=== PATIENT | female | born 1940 | race Caucasian/White ===

== ENCOUNTER 2017-05-03 06:49 | Emergency (ER) | payer MEDICARE ==
[2017-05-03] MEDS ORDERED: Lidocaine 1% w/Epinephrine 1:100K 30 ML VIAL ONE (07:06)
[2017-05-03] MEDS ORDERED: Adacel (T-DAP) 0.5 ML VIAL ONE (07:32)
--- NOTE | 2017-05-03 07:59 | CT ---
HEAD CT: Date: 05/03/17 COMPARISON: None. HISTORY: Fall, trauma, pain. TECHNIQUE: Serial axial CT imaging at 5 mm intervals from vertex through skull base without contrast. FINDINGS: There is a focal area of posterior parietal scalp swelling with punctate internal foci of gas, eviden ce of posterior scalp laceration. The visualized paranasal sinuses and mastoid air cells are grossly unremarkable aside from mucosal thickening within the left sphenoid sinus. No displaced calvarial fra cture, intracranial hemorrhage, midline shift, or mass effect. IMPRESSION: Posterior scalp swelling/laceration. No associated intracranial hemorrhage or displaced calvarial fra cture. POS: [facility]
== END 2017-05-03 08:02 | disposition home or self-care (01) ==
LOC: SCSER 06:49
DX: S01.01XA Laceration without foreign body of scalp, initial encounter (principal); W18.09XA Striking against other object with subsequent fall, initial encounter
CPT/HCPCS: 12001; 70450; 90471; 90715; J2001

== ENCOUNTER 2017-05-09 11:26 | Emergency (ER) | payer MEDICARE | END 2017-05-09 12:10 | disposition home or self-care (01) | LOC: SCSER 11:26 | DX: S01.01XD Laceration without foreign body of scalp, subsequent encounter (principal); W18.30XD Fall on same level, unspecified, subsequent encounter; Z79.899 Other long term (current) drug therapy ==

== ENCOUNTER 2018-06-06 08:01 | Outpatient (CLI) | payer MEDICARE ==
--- NOTE | 2018-06-06 09:17 | MRI ---
Exam: BRAIN MRI WITH AND WITHOUT CONTRAST: HISTORY: Multiple sclerosis. COMPARISON: None FINDINGS: No hemorrhage on the axial gradient echo sequence. Calvarium has a normal T1 marrow signal intensity. Midline brain parenchymal structures are unremarka ble. There are stable T2 and FLAIR white matter hyperintensities. No new lesions are appreciated. The dist ribution does raise the possibility of multiple sclerosis, as suggested by the previous examination as well as the patient's history. There is adequate aeration of the sinuses and mastoid air cells. Central arterial flow voids are maintained. Absent restricted diffusion. No pathologic enhancement of the brain parenchyma. IMPRESSION: 1. Absent restricted diffusion. No evidence of abnormal brain parenchymal enhancement. No MR evidence of an active demyelinating plaque. 2. Essentially stable distribution of T2 and FLAIR white matter hyperintensities compatible with the patient's history of multiple sclerosis. Transcribed Date/Time: 06/06/2018 9:25 AM
== END 2018-06-06 08:02 | disposition home or self-care (01) ==
LOC: SCSMRI 08:01
PROVIDERS: ATTEND Psychiatry & Neurology Neurology
DX: G35 Multiple sclerosis (principal)
CPT/HCPCS: 70553; 82565

== ENCOUNTER 2021-01-19 08:27 | Outpatient (CLI) | payer MEDICARE | END 2021-01-19 08:28 | disposition home or self-care (01) | LOC: BICMRI 08:27 | PROVIDERS: ATTEND Specialist | DX: C50.911 Malignant neoplasm of unspecified site of right female breast (principal) | CPT/HCPCS: 82565; C8908 ==

== ENCOUNTER 2021-02-07 09:48 | Outpatient (CLI) | payer MEDICARE ==
[2021-02-07] MEDS ORDERED: Iopamidol 370 76% 100 ML VIAL ONE (15:19)
== END 2021-02-07 09:49 | disposition home or self-care (01) ==
LOC: CT 09:48
PROVIDERS: ATTEND Internal Medicine Hematology & Oncology
DX: C50.411 Malignant neoplasm of upper-outer quadrant of right female breast (principal); C79.51 Secondary malignant neoplasm of bone; C78.7 Secondary malignant neoplasm of liver and intrahepatic bile duct
CPT/HCPCS: 71260; 74177; 78306; A9503; Q9967

== ENCOUNTER 2021-02-16 13:44 | Outpatient (CLI) | payer MEDICARE ==
[2021-02-17 14:36] LABS: SARS-CoV-2 PCR by NAA Not Detected (NotDetected)
== END 2021-02-16 13:45 | disposition home or self-care (01) ==
LOC: LABBT 13:44
PROVIDERS: ATTEND Internal Medicine Hematology & Oncology
DX: Z01.812 Encounter for preprocedural laboratory examination (principal); C79.51 Secondary malignant neoplasm of bone; C50.411 Malignant neoplasm of upper-outer quadrant of right female breast; Z20.822 Contact with and (suspected) exposure to COVID-19
CPT/HCPCS: U0003; U0005

== ENCOUNTER 2021-02-21 08:45 | Day surgery (SDC) | payer MEDICARE ==
[2021-02-18 06:27] VITALS: BMI 24.2
[2021-02-21 09:16] LABS: INR-International Normal Ratio 0.9; PTT 26.5 sec (22.9-36.1); Prothrombin Time 12.2 sec (12.0-14.7)
[2021-02-21 11:38] VITALS: TEMP 98
[2021-02-21] MEDS ORDERED: Fentanyl 100 MCG/2 ML VIAL ONE (12:16)
[2021-02-21] MEDS ORDERED: Midazolam HCl 2 mg/2 ml Vial ONE (12:16)
== END 2021-02-21 14:15 | disposition home or self-care (01) ==
LOC: CT 08:45
PROVIDERS: ATTEND Internal Medicine Hematology & Oncology
PROC: 0FB13ZX Excision of Right Lobe Liver, Percutaneous Approach, Diagnostic (ICD-10-PCS; principal; 2021-02-21)
DX: C50.411 Malignant neoplasm of upper-outer quadrant of right female breast (principal); C78.7 Secondary malignant neoplasm of liver and intrahepatic bile duct; D63.0 Anemia in neoplastic disease; Z17.0 Estrogen receptor positive status [ER+]; Z79.83 Long term (current) use of bisphosphonates; Z79.899 Other long term (current) drug therapy
CPT/HCPCS: 47000; 77012; 85610; 85730; 88307; 88333; 88334; 88341; 88342; J2250; J3010

== ENCOUNTER 2021-05-16 07:59 | Outpatient (CLI) | payer MEDICARE | END 2021-05-16 08:00 | disposition home or self-care (01) | LOC: CT 07:59 | PROVIDERS: ATTEND Internal Medicine Hematology & Oncology | DX: C50.411 Malignant neoplasm of upper-outer quadrant of right female breast (principal); C79.51 Secondary malignant neoplasm of bone; R91.1 Solitary pulmonary nodule | CPT/HCPCS: 71260; 74177; 78306; 82565; A9503 ==

== ENCOUNTER 2021-08-12 07:36 | Outpatient (CLI) | payer MEDICARE ==
[2021-08-12] MEDS ORDERED: Iopamidol 370 76% 100 ML VIAL ONE (08:00)
== END 2021-08-12 07:37 | disposition home or self-care (01) ==
LOC: NM 07:36
PROVIDERS: ATTEND Internal Medicine Hematology & Oncology
DX: C79.51 Secondary malignant neoplasm of bone (principal); C50.411 Malignant neoplasm of upper-outer quadrant of right female breast; R91.8 Other nonspecific abnormal finding of lung field; I71.4 Abdominal aortic aneurysm, without rupture
CPT/HCPCS: 71260; 74177; 78306; 82565; Q9967

== ENCOUNTER 2022-02-17 08:38 | Outpatient (CLI) | payer MEDICARE ==
[2022-02-17] MEDS ORDERED: Iopamidol 370 76% 100 ML VIAL ONE (10:15)
== END 2022-02-17 08:39 | disposition home or self-care (01) ==
LOC: CT 08:38
PROVIDERS: ATTEND Internal Medicine Hematology & Oncology
DX: C79.51 Secondary malignant neoplasm of bone (principal); C50.411 Malignant neoplasm of upper-outer quadrant of right female breast
CPT/HCPCS: 71260; 74177; 78306; 82565; A9503

== ENCOUNTER 2022-04-08 21:16 | Observation (INO) | payer MEDICARE ==
[2022-04-08] MEDS ORDERED: HYDROcodone/Acetaminophen 5/325 mg Tablet ONE (21:56)
[2022-04-08] MEDS ORDERED: Ketorolac Tromethamine 30 MG/ML VIAL ONE (21:56)
[2022-04-08 22:50] LABS: #Basophils 0.1 thou/uL (0.0-0.2); #Eosinphils 0.2 thou/uL (0.0-0.7); #Lymphocytes 2.3 thou/uL (1.20-3.40); #Monocytes 0.8 thou/uL (0.11-0.59); #Neutrophils 3.5 thou/uL (1.40-6.50); %Basophils 1.2 % (0.0-1.0); %Eosinophils 3.3 % (0.0-10.0); %Monocytes 11.9 % (0.0-10.0); %Neutrophils 50.6 % (42.0-75.0); Hemoglobin 10.2 g/dL (12.0-16.0); Mean Corpuscular HGB CONC 33.7 g/dL (32.0-36.0); Mean Corpuscular Hemoglobin 37.2 pg (27.0-31.0); Mean Platelet Volume 6.7 fL (7.4-10.4); Platelet Count 208 10x3/uL (130-400); RBC Distribution Width 12.1 % (11.5-14.5); Red Blood Cell (RBC) Count 2.73 mill/uL (4.20-5.40)
[2022-04-08 22:58] LABS: ALT (SGPT) 7 U/L (8-55); AST (SGOT) 19 U/L (5-34); Albumin 3.3 g/dL (3.4-4.8); Alkaline Phosphatase 44 U/L (40-110); Anion Gap 14 mmol/L (10-20); BUN (Urea Nitrogen) 27 mg/dL (9.8-20.1); Bilirubin, Total 0.3 mg/dL (0.2-1.2); Calc. Creatinine Clearance 0 mL/min (70-130); Calcium 9.8 mg/dL (7.8-10.44); Carbon Dioxide 24 mmol/L (23-31); Chloride 107 mmol/L (98-107); Estimated GFR 45; Globulin 2.8 g/dL (2.4-3.5); Glucose 111 mg/dL (83-110); Potassium 3.7 mmol/L (3.5-5.1); Protein, Total 6.1 g/dL (5.8-8.1); Sodium 141 mmol/L (136-145)
[2022-04-09 01:41] VITALS: BMI 21.4
[2022-04-09 01:42] LABS: SARS-CoV-2 NAA Rapid Test Not Detected (NotDetected)
[2022-04-09] MEDS ORDERED: Bisacodyl 10 MG SUPP PR PRN (03:04)
[2022-04-09 06:50] LABS: #Basophils 0.1 thou/uL (0.0-0.2); #Eosinphils 0.2 thou/uL (0.0-0.7); #Lymphocytes 2.2 thou/uL (1.20-3.40); #Monocytes 0.8 thou/uL (0.11-0.59); #Neutrophils 3.5 thou/uL (1.40-6.50); %Basophils 1.6 % (0.0-1.0); %Monocytes 11.5 % (0.0-10.0); Hemoglobin 9.6 g/dL (12.0-16.0); Mean Corpuscular HGB CONC 33.5 g/dL (32.0-36.0); Mean Corpuscular Hemoglobin 37.1 pg (27.0-31.0); Mean Platelet Volume 6.6 fL (7.4-10.4); Platelet Count 183 10x3/uL (130-400); RBC Distribution Width 11.9 % (11.5-14.5); Red Blood Cell (RBC) Count 2.57 mill/uL (4.20-5.40); White Blood Cell (WBC) Count 6.7 10x3/uL (4.8-10.8)
[2022-04-09 07:07] LABS: Anion Gap 11 mmol/L (10-20); BUN (Urea Nitrogen) 25 mg/dL (9.8-20.1); Calc. Creatinine Clearance 33 mL/min (70-130); Carbon Dioxide 20 mmol/L (23-31); Chloride 111 mmol/L (98-107); Estimated GFR 48; Glucose 91 mg/dL (83-110); Potassium 3.9 mmol/L (3.5-5.1); Sodium 138 mmol/L (136-145)
[2022-04-09] MEDS: Famotidine 20 MG TAB PO SCH ×2 (09:35→22:26)
[2022-04-09] MEDS: HYDROcodone/Acetaminophen 5/325 mg Tablet PO PRN ×2 (11:42→22:26)
[2022-04-09] MEDS ORDERED: ABEMACICLIB 150 MG PO SCH (21:00)
[2022-04-10] MEDS: Letrozole 2.5 MG TAB PO SCH ×2 (10:01→10:14)
[2022-04-10] MEDS: Ascorbic Acid 500 mg Chewable Tablet PO SCH (10:01)
[2022-04-10] MEDS: Calcium Carbonate 500 MG TAB PO SCH (10:01)
[2022-04-10] MEDS: Multivitamin w/Zinc Stress 1 TAB PO SCH (10:01)
[2022-04-10] MEDS: HYDROcodone/Acetaminophen 5/325 mg Tablet PO PRN ×2 (10:10→22:04)
[2022-04-10] MEDS ORDERED: Acetaminophen 325 MG Suppository PR PRN (17:12)
[2022-04-10] MEDS ORDERED: traMADol HCl 50 MG TAB PO PRN (17:14)
[2022-04-10] MEDS ORDERED: Acetaminophen 325 MG TAB PO PRN (17:17)
[2022-04-10] MEDS: Acetaminophen 325 MG TAB PO SCH (22:02)
[2022-04-10] MEDS: Senokot S 8.6-50 MG TAB PO SCH (22:05)
[2022-04-10] MEDS: Famotidine 20 MG TAB PO SCH (22:05)
[2022-04-11] MEDS: Ascorbic Acid 500 mg Chewable Tablet PO SCH (09:39)
[2022-04-11] MEDS: Multivitamin w/Zinc Stress 1 TAB PO SCH (09:40)
[2022-04-11] MEDS: Calcium Carbonate 500 MG TAB PO SCH (09:40)
[2022-04-11] MEDS: Multivit, Therapeutic 1 TAB PO SCH (09:40)
[2022-04-11] MEDS: Acetaminophen 325 MG TAB PO SCH ×3 (09:40→22:09)
[2022-04-11] MEDS: Cyanocobalamin (Vitamin B-12) 1,000 MCG TAB PO SCH (09:40)
[2022-04-11] MEDS: Senokot S 8.6-50 MG TAB PO SCH ×2 (09:40→22:08)
[2022-04-11] MEDS: Letrozole 2.5 MG TAB PO SCH (09:41)
[2022-04-11] MEDS ORDERED: Polyethylene Glycol 3350 17 GM Packet PO PRN (15:53)
[2022-04-11] MEDS: Famotidine 20 MG TAB PO SCH (22:09)
[2022-04-12] MEDS: Calcium Carbonate 500 MG TAB PO SCH (10:26)
[2022-04-12] MEDS: Ascorbic Acid 500 mg Chewable Tablet PO SCH (10:26)
[2022-04-12] MEDS: Letrozole 2.5 MG TAB PO SCH (10:26)
[2022-04-12] MEDS: Acetaminophen 325 MG TAB PO SCH ×3 (10:27→20:23)
[2022-04-12] MEDS: Cyanocobalamin (Vitamin B-12) 1,000 MCG TAB PO SCH (10:27)
[2022-04-12] MEDS: Multivitamin w/Zinc Stress 1 TAB PO SCH (10:27)
[2022-04-12] MEDS: Multivit, Therapeutic 1 TAB PO SCH (10:27)
[2022-04-12] MEDS: Senokot S 8.6-50 MG TAB PO SCH ×2 (10:28→20:27)
[2022-04-12] MEDS: Famotidine 20 MG TAB PO SCH (20:23)
[2022-04-13] MEDS: Letrozole 2.5 MG TAB PO SCH (08:25)
[2022-04-13] MEDS: Acetaminophen 325 MG TAB PO SCH (08:26)
[2022-04-13] MEDS: Ascorbic Acid 500 mg Chewable Tablet PO SCH (08:27)
[2022-04-13] MEDS: Multivit, Therapeutic 1 TAB PO SCH (08:27)
[2022-04-13] MEDS: Calcium Carbonate 500 MG TAB PO SCH (08:27)
[2022-04-13] MEDS: Multivitamin w/Zinc Stress 1 TAB PO SCH (08:28)
[2022-04-13] MEDS: Cyanocobalamin (Vitamin B-12) 1,000 MCG TAB PO SCH (08:28)
[2022-04-13] MEDS: Senokot S 8.6-50 MG TAB PO SCH (08:29)
[2022-04-13 15:47] VITALS: BP 152/76; TEMP 98
== END 2022-04-13 16:14 | disposition home or self-care (01) ==
LOC: ERS 21:16 → ERHOLD 04-09 00:35 → SURG B 04-09 04:14
PROVIDERS: ADMIT Internal Medicine; ATTEND Internal Medicine
DX: G89.3 Neoplasm related pain (acute) (chronic) (principal); M25.551 Pain in right hip; C50.919 Malignant neoplasm of unspecified site of unspecified female breast; C79.51 Secondary malignant neoplasm of bone; N18.30 Chronic kidney disease, stage 3 unspecified; D63.1 Anemia in chronic kidney disease; M81.0 Age-related osteoporosis without current pathological fracture; G35 Multiple sclerosis; Z79.83 Long term (current) use of bisphosphonates; Z79.899 Other long term (current) drug therapy; Z20.822 Contact with and (suspected) exposure to COVID-19
CPT/HCPCS: 72192; 80048; 80053; 85025 ×2; 96372; 97116 ×2; 97530; 97535; 99284; U0002; 36415; G0378; J1650; J1885

== ENCOUNTER 2022-05-08 09:04 | Outpatient (CLI) | payer MEDICARE | END 2022-05-08 09:05 | disposition home or self-care (01) | LOC: CT 09:04 | PROVIDERS: ATTEND Internal Medicine Hematology & Oncology | DX: C50.411 Malignant neoplasm of upper-outer quadrant of right female breast (principal); C79.51 Secondary malignant neoplasm of bone | CPT/HCPCS: 71260; 74177; 78306; A9503 ==

== ENCOUNTER 2022-08-04 08:24 | Outpatient (CLI) | payer MEDICARE ==
[2022-08-04] MEDS ORDERED: Iopamidol 370 76% 100 ML VIAL ONE (13:06)
== END 2022-08-04 08:25 | disposition home or self-care (01) ==
LOC: CT 08:24
PROVIDERS: ATTEND Internal Medicine Hematology & Oncology
DX: C50.411 Malignant neoplasm of upper-outer quadrant of right female breast (principal); C79.51 Secondary malignant neoplasm of bone; I71.40 Abdominal aortic aneurysm, without rupture, unspecified; J98.4 Other disorders of lung
CPT/HCPCS: 71260; 74177; 78306; 82565; A9503

== ENCOUNTER 2022-11-20 08:06 | Outpatient (CLI) | payer MEDICARE ==
[2022-11-20] MEDS ORDERED: Iopamidol 370 76% 100 ML VIAL ONE (14:09)
== END 2022-11-20 08:07 | disposition home or self-care (01) ==
LOC: CT 08:06
PROVIDERS: ATTEND Internal Medicine Hematology & Oncology
DX: Z51.11 Encounter for antineoplastic chemotherapy (principal); C50.411 Malignant neoplasm of upper-outer quadrant of right female breast; C79.51 Secondary malignant neoplasm of bone; J98.4 Other disorders of lung
CPT/HCPCS: 71260; 74177; 78306; A9503; Q9967

== ENCOUNTER 2022-11-23 13:31 | Outpatient (CLI) | payer MEDICARE | END 2022-11-23 13:32 | disposition home or self-care (01) | LOC: ULT 13:31 | PROVIDERS: ATTEND Internal Medicine Hematology & Oncology | DX: Z51.11 Encounter for antineoplastic chemotherapy (principal); C50.411 Malignant neoplasm of upper-outer quadrant of right female breast; C79.51 Secondary malignant neoplasm of bone; Z79.899 Other long term (current) drug therapy | CPT/HCPCS: 93306 ==

== ENCOUNTER 2023-01-18 09:59 | Day surgery (SDC) | payer MEDICARE ==
[~2023-01-18 09:59] MED LIST: Acetaminophen 500 MG TAB PO SCH; diphenhydrAMINE 25 MG CAP PO SCH
[2023-01-18] MEDS ORDERED: Acetaminophen 500 MG TAB ONE (11:23)
[2023-01-18] MEDS ORDERED: diphenhydrAMINE 25 MG CAP ONE (11:23)
[2023-01-18 14:14] VITALS: BP 124/60; TEMP 97.5
[2023-01-18] MEDS ORDERED: FLU VACC QS2023(65UP)/MF59C/PF 60 MCG/0.5 ML SYRINGE IM ONE (16:00)
== END 2023-01-18 14:15 | disposition home or self-care (01) ==
LOC: ONC/OP 09:59
PROVIDERS: ATTEND Internal Medicine Hematology & Oncology
DX: D64.9 Anemia, unspecified (principal); D69.59 Other secondary thrombocytopenia
CPT/HCPCS: 36430; 86850; 86900; 86901; 86920; P9016; J1642

== ENCOUNTER 2023-02-02 13:53 | Inpatient (IN) | payer MEDICARE ==
[~2023-02-02 13:53] MED LIST changes: -Acetaminophen 500 MG TAB PO SCH; +Iopamidol-370 76% 500 ML MDV (1 ML CHARGE) ONE; -diphenhydrAMINE 25 MG CAP PO SCH
[2023-02-02 14:27] LABS: Hematocrit 26.8 % (36.0-47.0); Hemoglobin 9.1 g/dL (12.0-16.0); Mean Corpuscular Volume 105.9 fl (78.0-98.0); Mean Platelet Volume 12.3 fL (7.4-10.4); RBC Distribution Width 17.1 % (11.5-14.5); Red Blood Cell (RBC) Count 2.53 mill/uL (4.20-5.40); White Blood Cell (WBC) Count 4.6 10x3/uL (4.8-10.8)
[2023-02-02 14:28] LABS: Delete Auto Diff?? YES; Manual Diff?? YES; Platelet Count 105 10x3/uL (130-400)
[2023-02-02 14:49] LABS: ALT (SGPT) 15 U/L (8-55); AST (SGOT) 57 U/L (5-34); Albumin 2.5 g/dL (3.4-4.8); Alkaline Phosphatase 282 U/L (40-110); Anion Gap 15 mmol/L (10-20); BUN (Urea Nitrogen) 39 mg/dL (9.8-20.1); Bilirubin, Total 2.1 mg/dL (0.2-1.2); Calc. Creatinine Clearance 0 mL/min (70-130); Calcium 9.2 mg/dL (7.8-10.44); Carbon Dioxide 27 mmol/L (23-31); Chloride 106 mmol/L (98-107); Estimated GFR 32; Globulin 2.8 g/dL (2.4-3.5); Glucose 114 mg/dL (83-110); Potassium 3.6 mmol/L (3.5-5.1); Protein, Total 5.3 g/dL (5.8-8.1); Sodium 144 mmol/L (136-145)
[2023-02-02 14:50] LABS: Anisocytosis SLIGHT = 6-15 cells HPF (0-5); Band 11 % (5-11); CellaVision Operator ID LAB.MJL; Eosinophils 3 % (0-10); Large Platelets 12.9 % (0-5); Lymphocytes 21 % (21-51); Macrocytosis SLIGHT = 6-15 cells HPF (0-5); Monocytes 8 % (0-10); Neutrophil 55 % (42-75); Platelet Adequacy Comment Platelets Decreased; Poikilocytosis SLIGHT = 6-15 cells HPF (0-5); Polychromasia SLIGHT = 2-3 cells HPF (0-2); Reactive Lymphocytes 1 % (0-10); Schistocytes SLIGHT = 2-5 cells HPF (0-1); Tear Drops SLIGHT = 2-5 cells HPF (0-1); Total Cell Count 101
[2023-02-02 15:04] LABS: INR-International Normal Ratio 0.9; PTT 37.2 sec (22.9-36.1); Prothrombin Time 12.8 sec (12.0-14.7)
[2023-02-02 15:35] LABS: Bacteria/HPF None Seen HPF (None Seen); Bilirubin Negative (Negative); Blood, Urine Negative (Negative); CAUTI Indications for Culture Alt mental st,lethar; Clarity Clear (Clear); Glucose, Urine (Dipstick) Normal (Negative); Ketone, Urine Negative (Negative); Leukocyte Negative Leu/uL (Negative); Nitrite Negative (Negative); Protein, Urine (Dipstick) Negative (Neg-Trace); RBC/HPF 0-3 HPF (0-3); Specific Gravity, Urine 1.012 (1.002-1.036); Squamous Epithelial 0-3 HPF (0-3); Urobilinogen Normal mg/dL (Less than 2); WBC/HPF 0-3 HPF (0-3); pH, Urine 6.5 (5.0-9.0)
[2023-02-02 15:38] LABS: Urine Culture Reflex No No
[2023-02-02 15:38] LABS: Troponin I 0.027 ng/mL (< 0.028)
[2023-02-02] MEDS ORDERED: Etomidate 40 MG (20 mL) VIAL ONE (16:09)
[2023-02-02] MEDS ORDERED: Rocuronium Bromide 10 MG/ML (10ML VIAL) ONE (16:10)
[2023-02-02] MEDS ORDERED: EPINEPHrine 1 MG/10 ML Abboject SYRINGE ONE (16:22)
[2023-02-02] MEDS ORDERED: NOREPINEPHRINE 8 MG/250 ML-D5W 250 ML ONE (16:23)
[2023-02-02] MEDS ORDERED: Fentanyl CADD 100 ML IV SCH ×2 (16:30→17:45)
[2023-02-02] MEDS ORDERED: cefTRIAXone (ROCEPHIN) 2 GM VIAL ONE (16:43)
[2023-02-02] MEDS ORDERED: Azithromycin 500 MG VIAL ONE (16:43)
[2023-02-02] MEDS ORDERED: Sodium Chloride 0.9% 100 ML ONE (16:43)
[2023-02-02 17:02] LABS: Actual Bicarbonate (HCO3a) 25.6 mEq/L (22-28); Base Excess (BEa) 2.4 mEq/L (-2.0 to +3.0); CO2 Tension 34.3 mmHg (35.0-45.0); O2 Tension (PaO2), arterial 212.1 mmHg (> 60.0); pH, Arterial 7.491 (7.35-7.45)
[2023-02-02 17:03] LABS: ALV-art Gradient 244.125 mmHg (0-20); Analyzer IN Cardio ER; Calcium, Ionized (arterial) 1.12 mmol/L (1.12-1.30); Carboxyhemoglobin (COHb) 0.1 gm% (0.0-3.0); Hematocrit-ABG 31 % (36.0-47.0); Hemoglobin (Hb) 10.4 g/dL (12.0-16.0); Potassium - ABG Lab 3.35 mmol/L (3.70-5.30); Puncture Site LRA
[2023-02-02] MEDS ORDERED: Pantoprazole 40 MG VIAL ONE (17:16)
[2023-02-02] MEDS ORDERED: Furosemide 100 MG (10 mL) VIAL ONE (17:16)
[2023-02-02] MEDS ORDERED: Acetaminophen 650 MG Suppository PR PRN (17:24)
[2023-02-02] MEDS ORDERED: VANCOMYCIN IVPB PRN (17:24)
[2023-02-02] MEDS ORDERED: Pantoprazole 40 MG VIAL IVP SCH (17:30)
[2023-02-02] MEDS ORDERED: Ventilator Sedation Protocol 1 EACH FS SCH (17:30)
[2023-02-02] MEDS ORDERED: Morphine 2 MG/ML VIAL SLOW IVP PRN (17:45)
[2023-02-02] MEDS ORDERED: DISCONTINUE PREVIOUS NARCOTIC PAIN MEDICATIONS AND BENZODIAZEPINES FS SCH (17:45)
[2023-02-02] MEDS ORDERED: Fentanyl BOLUS 250 ML IVPB PRN (17:45)
[2023-02-02] MEDS ORDERED: Piperacillin/Tazobactam 3.375 GM in Sodium Chloride 0.9% 100 ML IVPB SCH (17:45)
[2023-02-02] MEDS ORDERED: Propofol BOLUS 1,000 MG/100 ML VIAL IV PRN (17:45)
[2023-02-02 18:18] LABS: Lactic Acid 2.2 mmol/L (0.5-2.2)
[2023-02-02] MEDS: Ipratropium/Albuterol 3 ML NEB NEB SCH ×2 (18:44→23:26)
[2023-02-02] MEDS ORDERED: Vancomycin Dose by Levels Sliding Scale (Wt <71) FS SCH (19:30)
[2023-02-02] MEDS ORDERED: Vancomycin (BATCH) 1.5 GM in Premix 1 BAG IVPB SCH (21:00)
[2023-02-02] MEDS: Lorazepam 2 MG/ML VIAL SLOW IVP PRN (21:04)
[2023-02-02] MEDS: methylPREDNISolone Sod Succ 40 MG VIAL IVP SCH (21:11)
[2023-02-02] MEDS: Propofol 1,000 MG/100 ML VIAL IV PRN (21:30)
[2023-02-02 22:14] LABS: Magnesium 2.2 mg/dL (1.6-2.6)
[2023-02-02 22:30] LABS: #Basophils 0.1 thou/uL (0.0-0.2); #Monocytes 0.5 thou/uL (0.11-0.59); #Neutrophils 2.3 thou/uL (1.40-6.50); %Basophils 1.1 % (0.0-1.0); %Eosinophils 0.7 % (0.0-10.0); %Lymphocytes 32.1 % (21.0-51.0); %Monocytes 11.5 % (0.0-10.0); %Neutrophils 53.5 % (42.0-75.0); Hematocrit 26.8 % (36.0-47.0); Hemoglobin 9.3 g/dL (12.0-16.0); Mean Corpuscular HGB CONC 34.7 g/dL (32.0-36.0); Mean Corpuscular Hemoglobin 35.9 pg (27.0-31.0); Mean Corpuscular Volume 103.5 fl (78.0-98.0); Mean Platelet Volume 11.9 fL (7.4-10.4); Platelet Count 100 10x3/uL (130-400); Red Blood Cell (RBC) Count 2.59 mill/uL (4.20-5.40); White Blood Cell (WBC) Count 4.4 10x3/uL (4.8-10.8)
[2023-02-02] MEDS ORDERED: Digoxin 0.5 MG/2 ML AMP SLOW IVP SCH (23:00)
[2023-02-03] MEDS: Piperacillin/Tazobactam 3.375 GM in Sodium Chloride 0.9% 100 ML IVPB SCH ×3 (00:29→21:11)
[2023-02-03] MEDS: NOREPINEPHRINE 8 MG/250 ML-D5W 250 ML IVPB PRN ×2 (02:30→10:07)
[2023-02-03] MEDS: methylPREDNISolone Sod Succ 40 MG VIAL IVP SCH ×5 (03:19→21:11)
[2023-02-03] MEDS ORDERED: Furosemide 40 MG (4 mL) VIAL SLOW IVP SCH (06:00)
[2023-02-03 07:01] LABS: #Monocytes 0.2 thou/uL (0.11-0.59); #Neutrophils 3.1 thou/uL (1.40-6.50); %Basophils 0.3 % (0.0-1.0); %Lymphocytes 10.9 % (21.0-51.0); %Neutrophils 83.5 % (42.0-75.0); Hematocrit 25.6 % (36.0-47.0); Hemoglobin 8.8 g/dL (12.0-16.0); Mean Corpuscular HGB CONC 34.4 g/dL (32.0-36.0); Mean Corpuscular Hemoglobin 36.2 pg (27.0-31.0); Mean Corpuscular Volume 105.3 fl (78.0-98.0); Mean Platelet Volume 12.5 fL (7.4-10.4); Platelet Count 101 10x3/uL (130-400); RBC Distribution Width 17.4 % (11.5-14.5); Red Blood Cell (RBC) Count 2.43 mill/uL (4.20-5.40); White Blood Cell (WBC) Count 3.8 10x3/uL (4.8-10.8)
[2023-02-03] MEDS: Ipratropium/Albuterol 3 ML NEB NEB SCH ×4 (07:23→23:51)
[2023-02-03 08:08] LABS: ALT (SGPT) 15 U/L (8-55); AST (SGOT) 54 U/L (5-34); Albumin 2.2 g/dL (3.4-4.8); Alkaline Phosphatase 262 U/L (40-110); Anion Gap 15 mmol/L (10-20); BUN (Urea Nitrogen) 38 mg/dL (9.8-20.1); Bilirubin, Total 2.2 mg/dL (0.2-1.2); Calc. Creatinine Clearance 25 mL/min (70-130); Calcium 7.8 mg/dL (7.8-10.44); Carbon Dioxide 26 mmol/L (23-31); Chloride 107 mmol/L (98-107); Estimated GFR 28; Globulin 2.5 g/dL (2.4-3.5); Glucose 177 mg/dL (83-110); Magnesium 2.1 mg/dL (1.6-2.6); Potassium 3.9 mmol/L (3.5-5.1); Protein, Total 4.7 g/dL (5.8-8.1); Sodium 144 mmol/L (136-145)
[2023-02-03] MEDS: Pantoprazole 40 MG VIAL IVP SCH ×2 (09:16→21:11)
[2023-02-03] MEDS ORDERED: Lactated Ringer's 500 ML IV SCH (13:15)
[2023-02-03] MEDS ORDERED: Vancomycin 1 GM in Premix 1 BAG IVPB SCH (21:00)
[2023-02-03] MEDS ORDERED: Vancomycin HCl 500 MG in Sodium Chloride 0.9% 100 ML IV SCH (22:00)
[2023-02-04] MEDS: methylPREDNISolone Sod Succ 40 MG VIAL IVP SCH ×4 (03:54→23:49)
[2023-02-04 04:58] LABS: #Monocytes 0.4 thou/uL (0.11-0.59); %Monocytes 5.7 % (0.0-10.0); Hematocrit 23.3 % (36.0-47.0); Hemoglobin 7.6 g/dL (12.0-16.0); Mean Corpuscular HGB CONC 32.6 g/dL (32.0-36.0); Mean Corpuscular Hemoglobin 35.8 pg (27.0-31.0); Mean Platelet Volume 12.6 fL (7.4-10.4); RBC Distribution Width 17.9 % (11.5-14.5); Red Blood Cell (RBC) Count 2.12 mill/uL (4.20-5.40); White Blood Cell (WBC) Count 6.1 10x3/uL (4.8-10.8)
[2023-02-04 05:04] LABS: Platelet Count 85 10x3/uL (130-400)
[2023-02-04 05:05] LABS: Mean Corpuscular Volume 109.9 fl (78.0-98.0)
[2023-02-04 05:24] LABS: Anion Gap 16 mmol/L (10-20); BUN (Urea Nitrogen) 47 mg/dL (9.8-20.1); Calc. Creatinine Clearance 20 mL/min (70-130); Calcium 7.3 mg/dL (7.8-10.44); Carbon Dioxide 25 mmol/L (23-31); Chloride 106 mmol/L (98-107); Estimated GFR 21; Glucose 274 mg/dL (83-110); Potassium 3.6 mmol/L (3.5-5.1); Sodium 143 mmol/L (136-145)
[2023-02-04] MEDS: NOREPINEPHRINE 8 MG/250 ML-D5W 250 ML IVPB PRN (06:13)
[2023-02-04] MEDS: Propofol 1,000 MG/100 ML VIAL IV PRN (07:25)
[2023-02-04] MEDS: Piperacillin/Tazobactam 3.375 GM in Sodium Chloride 0.9% 100 ML IVPB SCH ×2 (07:40→21:40)
[2023-02-04] MEDS: Pantoprazole 40 MG VIAL IVP SCH ×2 (07:40→21:40)
[2023-02-04] MEDS: Ipratropium/Albuterol 3 ML NEB NEB SCH ×4 (07:55→23:50)
[2023-02-04] MEDS ORDERED: Dexmedetomidine In 0.9 % NaCl 100 ML IVPB SCH (08:30)
[2023-02-04] MEDS ORDERED: Insulin Regular 300 UNITS/3 ML VIAL SC PRN (08:36)
[2023-02-04] MEDS ORDERED: Glucagon 1 MG/ML KIT IM PRN (08:45)
[2023-02-04] MEDS ORDERED: Dextrose 5% in Water 1,000 ML IV PRN (08:45)
[2023-02-04] MEDS ORDERED: Dextrose 50% Abboject 50 ML SYRINGE IVP PRN (08:45)
[2023-02-04] MEDS: Sodium Chloride 0.9% 1,000 ML IV SCH (15:20)
[2023-02-04] MEDS ORDERED: Vancomycin 1 GM in Premix 1 BAG IVPB SCH (17:00)
[2023-02-04] MEDS: HumaLOG 300 UNITS/3 ML VIAL SC PRN ×2 (17:35→22:30)
[2023-02-04 21:16] LABS: Vancomycin, Random 15.2 ug/mL (See Comment)
[2023-02-04] MEDS ORDERED: Vancomycin HCl 500 MG in Sodium Chloride 0.9% 100 ML IV SCH (23:30)
[2023-02-05] MEDS: HumaLOG 300 UNITS/3 ML VIAL SC PRN ×4 (03:49→21:32)
[2023-02-05 04:46] LABS: #Monocytes 0.3 thou/uL (0.11-0.59); #Neutrophils 3.9 thou/uL (1.40-6.50); %Basophils 0.2 % (0.0-1.0); %Lymphocytes 6.9 % (21.0-51.0); %Monocytes 6.5 % (0.0-10.0); %Neutrophils 84.7 % (42.0-75.0); Hematocrit 21.5 % (36.0-47.0); Mean Corpuscular HGB CONC 32.6 g/dL (32.0-36.0); Mean Corpuscular Volume 107.5 fl (78.0-98.0); Mean Platelet Volume 12.9 fL (7.4-10.4); RBC Distribution Width 17.5 % (11.5-14.5); White Blood Cell (WBC) Count 4.6 10x3/uL (4.8-10.8)
[2023-02-05 04:50] LABS: Platelet Count 56 10x3/uL (130-400)
[2023-02-05 05:08] LABS: Anion Gap 13 mmol/L (10-20); BUN (Urea Nitrogen) 53 mg/dL (9.8-20.1); Calc. Creatinine Clearance 20 mL/min (70-130); Calcium 7.1 mg/dL (7.8-10.44); Carbon Dioxide 26 mmol/L (23-31); Chloride 109 mmol/L (98-107); Estimated GFR 20; Glucose 351 mg/dL (83-110); Potassium 3.2 mmol/L (3.5-5.1); Sodium 145 mmol/L (136-145)
[2023-02-05] MEDS: Sodium Chloride 0.9% 1,000 ML IV SCH ×3 (05:58→21:39)
[2023-02-05] MEDS ORDERED: Electrolyte Replacement Protocol FS PRN (07:15)
[2023-02-05] MEDS ORDERED: Potassium Chloride 40 MEQ in Premix 1 BAG IVPB SCH (07:15)
[2023-02-05] MEDS: Ipratropium/Albuterol 3 ML NEB NEB SCH ×4 (07:29→23:47)
[2023-02-05 08:29] LABS: Hematocrit 22.5 % (36.0-47.0); Hemoglobin 7.3 g/dL (12.0-16.0); Mean Corpuscular HGB CONC 32.4 g/dL (32.0-36.0); Mean Corpuscular Hemoglobin 35.6 pg (27.0-31.0); Mean Corpuscular Volume 109.8 fl (78.0-98.0); Mean Platelet Volume 13.5 fL (7.4-10.4); RBC Distribution Width 17.6 % (11.5-14.5); Red Blood Cell (RBC) Count 2.05 mill/uL (4.20-5.40); White Blood Cell (WBC) Count 4.8 10x3/uL (4.8-10.8)
[2023-02-05 08:41] LABS: Platelet Count 59 10x3/uL (130-400)
[2023-02-05] MEDS ORDERED: FLU VACC QS2023(65UP)/MF59C/PF 60 MCG/0.5 ML SYRINGE IM ONE (09:00)
[2023-02-05] MEDS: Pantoprazole 40 MG VIAL IVP SCH ×2 (09:18→21:33)
[2023-02-05] MEDS: Piperacillin/Tazobactam 3.375 GM in Sodium Chloride 0.9% 100 ML IVPB SCH ×2 (09:18→21:33)
[2023-02-05] MEDS: methylPREDNISolone Sod Succ 40 MG VIAL IVP SCH (09:19)
[2023-02-05] MEDS ORDERED: Insulin Glargine 30 UNITS/0.3 ML VIAL SC SCH (09:45)
[2023-02-05] MEDS ORDERED: Dextrose 5% in Water 1,000 ML IV PRN (11:32)
[2023-02-05] MEDS ORDERED: methylPREDNISolone Sod Succ 40 MG VIAL IVP SCH (12:30)
[2023-02-05 16:57] LABS: Potassium 4.1 mmol/L (3.5-5.1)
[2023-02-05] MEDS ORDERED: NOREPINEPHRINE 8 MG/250 ML-D5W 250 ML IVPB SCH (21:00)
[2023-02-05 22:35] LABS: Vancomycin, Random 17.6 ug/mL (See Comment)
[2023-02-05] MEDS ORDERED: Vancomycin HCl 500 MG in Sodium Chloride 0.9% 100 ML IVPB SCH (22:45)
[2023-02-06] MEDS: HumaLOG 300 UNITS/3 ML VIAL SC PRN ×3 (03:56→16:11)
[2023-02-06 04:08] LABS: #Monocytes 0.4 thou/uL (0.11-0.59); %Lymphocytes 7.2 % (21.0-51.0); %Neutrophils 85.4 % (42.0-75.0); Hematocrit 21.3 % (36.0-47.0); Hemoglobin 6.9 g/dL (12.0-16.0); Mean Corpuscular HGB CONC 32.4 g/dL (32.0-36.0); Mean Corpuscular Hemoglobin 35.6 pg (27.0-31.0); Mean Corpuscular Volume 109.8 fl (78.0-98.0); Mean Platelet Volume 13.1 fL (7.4-10.4); RBC Distribution Width 17.7 % (11.5-14.5); Red Blood Cell (RBC) Count 1.94 mill/uL (4.20-5.40); White Blood Cell (WBC) Count 5.8 10x3/uL (4.8-10.8)
[2023-02-06 04:16] LABS: Platelet Count 50 10x3/uL (130-400)
[2023-02-06 04:26] LABS: Anion Gap 12 mmol/L (10-20); BUN (Urea Nitrogen) 59 mg/dL (9.8-20.1); Calc. Creatinine Clearance 23 mL/min (70-130); Carbon Dioxide 25 mmol/L (23-31); Chloride 114 mmol/L (98-107); Estimated GFR 23; Glucose 232 mg/dL (83-110); Potassium 4.2 mmol/L (3.5-5.1); Sodium 147 mmol/L (136-145)
[2023-02-06] MEDS ORDERED: methylPREDNISolone Sod Succ 40 MG VIAL IVP SCH ×2 (06:00→09:00)
[2023-02-06] MEDS: Ipratropium/Albuterol 3 ML NEB NEB SCH ×4 (07:26→23:51)
[2023-02-06] MEDS: Pantoprazole 40 MG VIAL IVP SCH ×2 (09:47→20:22)
[2023-02-06] MEDS: Insulin Glargine 30 UNITS/0.3 ML VIAL SC SCH (09:47)
[2023-02-06] MEDS: Piperacillin/Tazobactam 3.375 GM in Sodium Chloride 0.9% 100 ML IVPB SCH ×2 (09:47→20:22)
[2023-02-06] MEDS ORDERED: Furosemide 40 MG (4 mL) VIAL SLOW IVP SCH (12:00)
[2023-02-06 22:38] LABS: Vancomycin, Random 19.3 ug/mL (See Comment)
[2023-02-06] MEDS ORDERED: Vancomycin HCl 500 MG in Sodium Chloride 0.9% 100 ML IVPB SCH (23:00)
[2023-02-06] MEDS: Lorazepam 2 MG/ML VIAL SLOW IVP PRN (23:57)
[2023-02-07] MEDS ORDERED: Lactated Ringer's 500 ML IV SCH (00:45)
[2023-02-07 04:45] LABS: #Monocytes 0.8 thou/uL (0.11-0.59); #Neutrophils 7.2 thou/uL (1.40-6.50); %Basophils 0.1 % (0.0-1.0); %Lymphocytes 7.7 % (21.0-51.0); %Monocytes 9.2 % (0.0-10.0); %Neutrophils 81.5 % (42.0-75.0); Hematocrit 24.2 % (36.0-47.0); Hemoglobin 8.1 g/dL (12.0-16.0); Mean Corpuscular HGB CONC 33.5 g/dL (32.0-36.0); Mean Corpuscular Hemoglobin 34.3 pg (27.0-31.0); Mean Corpuscular Volume 102.5 fl (78.0-98.0); Mean Platelet Volume 12.6 fL (7.4-10.4); RBC Distribution Width 22.8 % (11.5-14.5); Red Blood Cell (RBC) Count 2.36 mill/uL (4.20-5.40); White Blood Cell (WBC) Count 8.8 10x3/uL (4.8-10.8)
[2023-02-07 04:52] LABS: Platelet Count 53 10x3/uL (130-400)
[2023-02-07 05:12] LABS: Anion Gap 11 mmol/L (10-20); BUN (Urea Nitrogen) 65 mg/dL (9.8-20.1); Calc. Creatinine Clearance 23 mL/min (70-130); Carbon Dioxide 26 mmol/L (23-31); Chloride 117 mmol/L (98-107); Estimated GFR 24; Glucose 182 mg/dL (83-110); Potassium 3.8 mmol/L (3.5-5.1); Sodium 150 mmol/L (136-145)
[2023-02-07] MEDS: HumaLOG 300 UNITS/3 ML VIAL SC PRN ×4 (06:22→23:20)
[2023-02-07] MEDS: Ipratropium/Albuterol 3 ML NEB NEB SCH ×4 (07:06→23:41)
[2023-02-07] MEDS: Piperacillin/Tazobactam 3.375 GM in Sodium Chloride 0.9% 100 ML IVPB SCH ×2 (08:09→20:39)
[2023-02-07] MEDS: Pantoprazole 40 MG VIAL IVP SCH ×2 (08:09→20:39)
[2023-02-07] MEDS: methylPREDNISolone Sod Succ 40 MG VIAL IVP SCH (08:10)
[2023-02-07] MEDS: Insulin Glargine 30 UNITS/0.3 ML VIAL SC SCH (08:10)
[2023-02-07] MEDS ORDERED: Docusate Sodium 10 MG/1 ML Oral Suspension PO SCH (11:45)
[2023-02-07] MEDS ORDERED: Polyethylene Glycol 3350 17 GM Packet PER TUBE SCH (11:45)
[2023-02-07] MEDS ORDERED: Docusate Sodium 100 MG/10 ML UDCUP PO SCH (12:45)
[2023-02-08 04:29] LABS: #Monocytes 0.7 thou/uL (0.11-0.59); #Neutrophils 8.7 thou/uL (1.40-6.50); %Basophils 0.2 % (0.0-1.0); %Monocytes 6.8 % (0.0-10.0); %Neutrophils 83.6 % (42.0-75.0); Hematocrit 25.3 % (36.0-47.0); Hemoglobin 8.1 g/dL (12.0-16.0); Mean Corpuscular Hemoglobin 33.3 pg (27.0-31.0); Mean Corpuscular Volume 104.1 fl (78.0-98.0); Mean Platelet Volume 13.4 fL (7.4-10.4); RBC Distribution Width 22.2 % (11.5-14.5); Red Blood Cell (RBC) Count 2.43 mill/uL (4.20-5.40); White Blood Cell (WBC) Count 10.4 10x3/uL (4.8-10.8)
[2023-02-08] MEDS: HumaLOG 300 UNITS/3 ML VIAL SC PRN (04:29)
[2023-02-08 04:35] LABS: Platelet Count 63 10x3/uL (130-400)
[2023-02-08 04:49] LABS: Anion Gap 14 mmol/L (10-20); BUN (Urea Nitrogen) 70 mg/dL (9.8-20.1); Calc. Creatinine Clearance 27 mL/min (70-130); Calcium 7.1 mg/dL (7.8-10.44); Carbon Dioxide 25 mmol/L (23-31); Chloride 118 mmol/L (98-107); Estimated GFR 27; Glucose 199 mg/dL (83-110); Potassium 3.4 mmol/L (3.5-5.1)
[2023-02-08 04:54] LABS: Sodium 154 mmol/L (136-145)
[2023-02-08] MEDS: Ipratropium/Albuterol 3 ML NEB NEB SCH ×4 (07:53→23:33)
[2023-02-08] MEDS: methylPREDNISolone Sod Succ 40 MG VIAL IVP SCH (08:13)
[2023-02-08] MEDS: Pantoprazole 40 MG VIAL IVP SCH ×2 (08:13→20:37)
[2023-02-08] MEDS: Piperacillin/Tazobactam 3.375 GM in Sodium Chloride 0.9% 100 ML IVPB SCH ×2 (08:13→16:43)
[2023-02-08] MEDS: Potassium Chloride 20 MEQ in Premix 1 BAG IVPB SCH ×2 (08:14→10:52)
[2023-02-08] MEDS: Insulin Glargine 30 UNITS/0.3 ML VIAL SC SCH (08:14)
[2023-02-08] MEDS: Polyethylene Glycol 3350 17 GM Packet PER TUBE SCH (08:36)
[2023-02-08] MEDS: Docusate Sodium 100 MG/10 ML UDCUP PO SCH (08:36)
[2023-02-08] MEDS ORDERED: DC Sedation Protocol FS ONE (09:02)
[2023-02-08] MEDS: Metoprolol Tartrate 25 MG TAB PO SCH ×2 (09:40→20:36)
[2023-02-08] MEDS: Dextrose 5% in Water 1,000 ML IV SCH ×2 (09:45→20:36)
[2023-02-08 15:07] LABS: Potassium 3.8 mmol/L (3.5-5.1)
[2023-02-09] MEDS: Piperacillin/Tazobactam 3.375 GM in Sodium Chloride 0.9% 100 ML IVPB SCH ×3 (00:23→15:19)
[2023-02-09 04:50] LABS: #Basophils 0.1 thou/uL (0.0-0.2); #Monocytes 1.3 thou/uL (0.11-0.59); #Neutrophils 12.1 thou/uL (1.40-6.50); %Basophils 0.3 % (0.0-1.0); %Eosinophils 0.1 % (0.0-10.0); %Lymphocytes 9.2 % (21.0-51.0); %Monocytes 8.3 % (0.0-10.0); %Neutrophils 80.3 % (42.0-75.0); Hematocrit 23.9 % (36.0-47.0); Hemoglobin 7.7 g/dL (12.0-16.0); Mean Corpuscular HGB CONC 32.2 g/dL (32.0-36.0); Mean Corpuscular Hemoglobin 33.6 pg (27.0-31.0); Mean Corpuscular Volume 104.4 fl (78.0-98.0); Mean Platelet Volume 13.8 fL (7.4-10.4); RBC Distribution Width 21.6 % (11.5-14.5); Red Blood Cell (RBC) Count 2.29 mill/uL (4.20-5.40); White Blood Cell (WBC) Count 15.1 10x3/uL (4.8-10.8)
[2023-02-09 04:55] LABS: Platelet Count 94 10x3/uL (130-400)
[2023-02-09 05:09] LABS: Anion Gap 12 mmol/L (10-20); BUN (Urea Nitrogen) 65 mg/dL (9.8-20.1); Calc. Creatinine Clearance 30 mL/min (70-130); Carbon Dioxide 26 mmol/L (23-31); Chloride 121 mmol/L (98-107); Estimated GFR 30; Glucose 156 mg/dL (83-110); Potassium 3.7 mmol/L (3.5-5.1)
[2023-02-09 05:19] LABS: Calcium 6.8 mg/dL (7.8-10.44); Critical Call Chemistry NUR.MDS1@0519; Sodium 155 mmol/L (136-145)
[2023-02-09] MEDS: Dextrose 5% in Water 1,000 ML IV SCH ×2 (06:45→08:33)
[2023-02-09] MEDS: Pantoprazole 40 MG VIAL IVP SCH ×2 (08:14→20:36)
[2023-02-09] MEDS: methylPREDNISolone Sod Succ 40 MG VIAL IVP SCH (08:14)
[2023-02-09] MEDS: Docusate Sodium 100 MG/10 ML UDCUP PO SCH (08:14)
[2023-02-09] MEDS: Metoprolol Tartrate 25 MG TAB PO SCH ×2 (08:15→20:30)
[2023-02-09] MEDS: Polyethylene Glycol 3350 17 GM Packet PER TUBE SCH (08:15)
[2023-02-09] MEDS: Insulin Glargine 30 UNITS/0.3 ML VIAL SC SCH (08:15)
[2023-02-09] MEDS: Ipratropium/Albuterol 3 ML NEB NEB SCH ×3 (08:26→22:50)
[2023-02-09] MEDS: HumaLOG 300 UNITS/3 ML VIAL SC PRN ×2 (11:20→16:30)
[2023-02-09 15:07] LABS: Hematocrit 23.7 % (36.0-47.0); Hemoglobin 7.6 g/dL (12.0-16.0)
[2023-02-09 15:31] LABS: Anion Gap 12 mmol/L (10-20); BUN (Urea Nitrogen) 61 mg/dL (9.8-20.1); Calc. Creatinine Clearance 30 mL/min (70-130); Carbon Dioxide 25 mmol/L (23-31); Chloride 116 mmol/L (98-107); Estimated GFR 30; Glucose 176 mg/dL (83-110); Potassium 3.8 mmol/L (3.5-5.1); Sodium 149 mmol/L (136-145)
[2023-02-09 15:45] LABS: Calcium 6.8 mg/dL (7.8-10.44)
[2023-02-10] MEDS: Piperacillin/Tazobactam 3.375 GM in Sodium Chloride 0.9% 100 ML IVPB SCH (00:06)
[2023-02-10] MEDS: Ipratropium/Albuterol 3 ML NEB NEB SCH ×5 (02:58→22:50)
[2023-02-10] MEDS: HumaLOG 300 UNITS/3 ML VIAL SC PRN ×2 (06:14→22:34)
[2023-02-10] MEDS: Polyethylene Glycol 3350 17 GM Packet PER TUBE SCH (08:47)
[2023-02-10] MEDS: Docusate Sodium 100 MG/10 ML UDCUP PO SCH (08:47)
[2023-02-10] MEDS: Insulin Glargine 30 UNITS/0.3 ML VIAL SC SCH (08:53)
[2023-02-10] MEDS: methylPREDNISolone Sod Succ 40 MG VIAL IVP SCH (08:53)
[2023-02-10] MEDS: Pantoprazole 40 MG VIAL IVP SCH ×2 (08:53→20:12)
[2023-02-10] MEDS: Metoprolol Tartrate 25 MG TAB PO SCH ×2 (08:54→20:12)
[2023-02-10 10:16] LABS: Hematocrit 23.7 % (36.0-47.0); Hemoglobin 7.6 g/dL (12.0-16.0); Manual Diff?? YES; Mean Corpuscular HGB CONC 32.1 g/dL (32.0-36.0); Mean Corpuscular Hemoglobin 34.1 pg (27.0-31.0); Mean Corpuscular Volume 106.3 fl (78.0-98.0); Mean Platelet Volume 13.2 fL (7.4-10.4); Platelet Count 136 10x3/uL (130-400); RBC Distribution Width 21.3 % (11.5-14.5); Red Blood Cell (RBC) Count 2.23 mill/uL (4.20-5.40); White Blood Cell (WBC) Count 11.5 10x3/uL (4.8-10.8)
[2023-02-10 10:30] LABS: Delete Auto Diff?? YES
[2023-02-10 10:39] LABS: Anion Gap 12 mmol/L (10-20); BUN (Urea Nitrogen) 69 mg/dL (9.8-20.1); Calc. Creatinine Clearance 30 mL/min (70-130); Carbon Dioxide 25 mmol/L (23-31); Chloride 118 mmol/L (98-107); Estimated GFR 30; Glucose 243 mg/dL (83-110); Potassium 3.8 mmol/L (3.5-5.1)
[2023-02-10 10:46] LABS: Calcium 6.8 mg/dL (7.8-10.44); Critical Call Chemistry NUR.KT2 @1046; Sodium 151 mmol/L (136-145)
[2023-02-10 11:48] LABS: Band 5 % (5-11); Lymphocytes 18 % (21-51); Monocytes 5 % (0-10); Myelocyte 1 % (0-0); Neutrophil 71 % (42-75); Nucleated RBC (Manual Ct) 3 % (0)
[2023-02-10 11:49] LABS: Macrocytosis MODERATE=16-30 cells (100X) (0-5/hpf); Ovalocytes SLIGHT = 2-5 cells (100X) (0-1/hpf)
[2023-02-10 11:50] LABS: Platelet Adequacy Comment Appears Adequate
[2023-02-11] MEDS: HumaLOG 300 UNITS/3 ML VIAL SC PRN ×4 (06:04→20:55)
[2023-02-11] MEDS: Ipratropium/Albuterol 3 ML NEB NEB SCH ×4 (07:08→22:59)
[2023-02-11] MEDS: Metoprolol Tartrate 25 MG TAB PO SCH ×2 (09:10→20:53)
[2023-02-11] MEDS: Docusate Sodium 100 MG/10 ML UDCUP PO SCH (09:13)
[2023-02-11] MEDS: Insulin Glargine 30 UNITS/0.3 ML VIAL SC SCH ×3 (09:14→20:52)
[2023-02-11] MEDS: Pantoprazole 40 MG VIAL IVP SCH ×2 (09:14→20:53)
[2023-02-11] MEDS: Polyethylene Glycol 3350 17 GM Packet PER TUBE SCH (09:19)
[2023-02-11 09:22] LABS: Hematocrit 26.6 % (36.0-47.0); Hemoglobin 8.3 g/dL (12.0-16.0); Manual Diff?? YES; Mean Corpuscular HGB CONC 31.2 g/dL (32.0-36.0); Mean Corpuscular Hemoglobin 33.6 pg (27.0-31.0); Mean Corpuscular Volume 107.7 fl (78.0-98.0); Mean Platelet Volume 13.3 fL (7.4-10.4); Platelet Count 162 10x3/uL (130-400); Red Blood Cell (RBC) Count 2.47 mill/uL (4.20-5.40)
[2023-02-11 10:22] LABS: Delete Auto Diff?? YES
[2023-02-11 11:02] LABS: Anion Gap 16 mmol/L (10-20); BUN (Urea Nitrogen) 66 mg/dL (9.8-20.1); Calc. Creatinine Clearance 32 mL/min (70-130); Carbon Dioxide 22 mmol/L (23-31); Chloride 119 mmol/L (98-107); Estimated GFR 33; Glucose 287 mg/dL (83-110)
[2023-02-11 11:10] LABS: Calcium 6.9 mg/dL (7.8-10.44); Critical Call Chemistry NUR.LH @1110; Sodium 153 mmol/L (136-145)
[2023-02-11 11:41] LABS: Lymphocytes 19 % (21-51); Metamyelocyte 1 % (0-0); Monocytes 4 % (0-10); Neutrophil 76 % (42-75); Nucleated RBC (Manual Ct) 3 % (0)
[2023-02-11 11:42] LABS: Macrocytosis MODERATE=16-30 cells (100X) (0-5/hpf); Ovalocytes SLIGHT = 2-5 cells (100X) (0-1/hpf); Platelet Adequacy Comment Appears Adequate
[2023-02-12] MEDS: HumaLOG 300 UNITS/3 ML VIAL SC PRN ×3 (06:16→17:30)
[2023-02-12 06:53] LABS: #Eosinphils 0.1 thou/uL (0.0-0.7); %Basophils 0.3 % (0.0-1.0); %Lymphocytes 24.7 % (21.0-51.0); %Monocytes 13.5 % (0.0-10.0); Hematocrit 26.9 % (36.0-47.0); Hemoglobin 8.5 g/dL (12.0-16.0); Manual Diff?? YES; Mean Corpuscular HGB CONC 31.6 g/dL (32.0-36.0); Mean Corpuscular Hemoglobin 33.7 pg (27.0-31.0); Mean Corpuscular Volume 106.7 fl (78.0-98.0); Mean Platelet Volume 12.9 fL (7.4-10.4); Platelet Count 170 10x3/uL (130-400); RBC Distribution Width 20.9 % (11.5-14.5); Red Blood Cell (RBC) Count 2.52 mill/uL (4.20-5.40); White Blood Cell (WBC) Count 14.6 10x3/uL (4.8-10.8)
[2023-02-12] MEDS: Ipratropium/Albuterol 3 ML NEB NEB SCH ×3 (07:34→19:08)
[2023-02-12 08:14] LABS: Anion Gap 10 mmol/L (10-20); BUN (Urea Nitrogen) 66 mg/dL (9.8-20.1); Calc. Creatinine Clearance 33 mL/min (70-130); Calcium 7.2 mg/dL (7.8-10.44); Carbon Dioxide 24 mmol/L (23-31); Chloride 117 mmol/L (98-107); Estimated GFR 34; Glucose 259 mg/dL (83-110); Potassium 3.7 mmol/L (3.5-5.1); Sodium 147 mmol/L (136-145)
[2023-02-12] MEDS: Metoprolol Tartrate 25 MG TAB PO SCH ×2 (09:12→22:44)
[2023-02-12] MEDS: Docusate Sodium 100 MG/10 ML UDCUP PO SCH (09:13)
[2023-02-12] MEDS: Insulin Glargine 30 UNITS/0.3 ML VIAL SC SCH ×2 (09:13→22:45)
[2023-02-12] MEDS: Pantoprazole 40 MG VIAL IVP SCH ×2 (09:13→22:45)
[2023-02-12] MEDS: Polyethylene Glycol 3350 17 GM Packet PER TUBE SCH (09:13)
[2023-02-12 09:21] LABS: Band 3 % (5-11); Lymphocytes 23 % (21-51); Monocytes 11 % (0-10); Neutrophil 63 % (42-75); Nucleated RBC (Manual Ct) 6 % (0)
[2023-02-12 09:22] LABS: Macrocytosis MODERATE=16-30 cells (100X) (0-5/hpf); Ovalocytes SLIGHT = 2-5 cells (100X) (0-1/hpf); Platelet Adequacy Comment Appears Adequate; Poikilocytosis SLIGHT = 6-15 cells (100X) (0-5/hpf)
[2023-02-13] MEDS: Ipratropium/Albuterol 3 ML NEB NEB SCH ×4 (00:03→19:04)
[2023-02-13] MEDS: HumaLOG 300 UNITS/3 ML VIAL SC PRN ×2 (04:54→18:34)
[2023-02-13 05:36] LABS: Hematocrit 24.7 % (36.0-47.0); Manual Diff?? YES; Mean Corpuscular HGB CONC 32.4 g/dL (32.0-36.0); Mean Corpuscular Hemoglobin 33.8 pg (27.0-31.0); Mean Corpuscular Volume 104.2 fl (78.0-98.0); Mean Platelet Volume 13.6 fL (7.4-10.4); Platelet Count 185 10x3/uL (130-400); RBC Distribution Width 20.9 % (11.5-14.5); Red Blood Cell (RBC) Count 2.37 mill/uL (4.20-5.40); White Blood Cell (WBC) Count 16.1 10x3/uL (4.8-10.8)
[2023-02-13 05:45] LABS: Delete Auto Diff?? YES
[2023-02-13 06:33] LABS: Anion Gap 11 mmol/L (10-20); BUN (Urea Nitrogen) 75 mg/dL (9.8-20.1); Calc. Creatinine Clearance 29 mL/min (70-130); Carbon Dioxide 27 mmol/L (23-31); Chloride 119 mmol/L (98-107); Estimated GFR 28; Glucose 349 mg/dL (83-110); Potassium 3.9 mmol/L (3.5-5.1)
[2023-02-13 06:41] LABS: Critical Call Chemistry NUR.ALS1@0640; Sodium 153 mmol/L (136-145)
[2023-02-13 06:52] LABS: Anisocytosis SLIGHT = 6-15 cells (100X) (0-5/hpf); Band 1 % (5-11); Lymphocytes 26 % (21-51); Macrocytosis SLIGHT = 6-15 cells (100X) (0-5/hpf); Monocytes 5 % (0-10); Myelocyte 3 % (0-0); Neutrophil 63 % (42-75); Nucleated RBC (Manual Ct) 10 % (0); Platelet Adequacy Comment Appears Adequate; Reactive Lymphocytes 2 % (0-10)
[2023-02-13] MEDS: Polyethylene Glycol 3350 17 GM Packet PER TUBE SCH (07:53)
[2023-02-13] MEDS: Docusate Sodium 100 MG/10 ML UDCUP PO SCH (07:53)
[2023-02-13] MEDS: Insulin Glargine 30 UNITS/0.3 ML VIAL SC SCH ×2 (08:33→22:58)
[2023-02-13] MEDS: Metoprolol Tartrate 25 MG TAB PO SCH ×2 (08:33→22:57)
[2023-02-13] MEDS: Pantoprazole 40 MG VIAL IVP SCH ×2 (08:33→22:58)
[2023-02-13] MEDS: Albumin 25% 25 GM (100 mL) BOT IVPB SCH ×3 (10:42→22:57)
[2023-02-13 14:42] VITALS: BMI 29.3
[2023-02-14] MEDS: Ipratropium/Albuterol 3 ML NEB NEB SCH ×3 (00:29→11:25)
[2023-02-14] MEDS ORDERED: Lorazepam 2 MG/ML VIAL SLOW IVP SCH (03:00)
[2023-02-14] MEDS: Albumin 25% 25 GM (100 mL) BOT IVPB SCH (03:54)
[2023-02-14 08:13] LABS: Anion Gap 19 mmol/L (10-20); BUN (Urea Nitrogen) 90 mg/dL (9.8-20.1); Calc. Creatinine Clearance 20 mL/min (70-130); Calcium 7.1 mg/dL (7.8-10.44); Carbon Dioxide 22 mmol/L (23-31); Chloride 115 mmol/L (98-107); Estimated GFR 18; Glucose 376 mg/dL (83-110); Potassium 4.6 mmol/L (3.5-5.1)
[2023-02-14 08:18] LABS: Sodium 151 mmol/L (136-145)
[2023-02-14] MEDS: Docusate Sodium 100 MG/10 ML UDCUP PO SCH (08:49)
[2023-02-14] MEDS: Polyethylene Glycol 3350 17 GM Packet PER TUBE SCH (08:50)
[2023-02-14] MEDS: Insulin Glargine 30 UNITS/0.3 ML VIAL SC SCH (08:56)
[2023-02-14] MEDS: Metoprolol Tartrate 25 MG TAB PO SCH (08:57)
[2023-02-14] MEDS: Pantoprazole 40 MG VIAL IVP SCH (08:57)
[2023-02-14 09:46] VITALS: BP 122/56; TEMP 98.5
[2023-02-14 11:17] LABS: Hematocrit 20.5 % (36.0-47.0); Hemoglobin 6.6 g/dL (12.0-16.0); Manual Diff?? YES; Mean Corpuscular HGB CONC 32.2 g/dL (32.0-36.0); Mean Corpuscular Hemoglobin 34.6 pg (27.0-31.0); Mean Corpuscular Volume 107.3 fl (78.0-98.0); Mean Platelet Volume 13.9 fL (7.4-10.4); Platelet Count 127 10x3/uL (130-400); Red Blood Cell (RBC) Count 1.91 mill/uL (4.20-5.40); White Blood Cell (WBC) Count 10.6 10x3/uL (4.8-10.8)
[2023-02-14 11:19] LABS: Delete Auto Diff?? YES
[2023-02-14 12:13] LABS: Band 2 % (5-11); Eosinophils 5 % (0-10); Lymphocytes 28 % (21-51); Monocytes 4 % (0-10); Nucleated RBC (Manual Ct) 10 % (0); Reactive Lymphocytes 1 % (0-10)
[2023-02-14 12:17] LABS: Neutrophil 60 % (42-75)
[2023-02-14 12:21] LABS: Macrocytosis SLIGHT = 6-15 cells (100X) (0-5/hpf); Polychromasia MODERATE = 3-4 cells (100X) (0-2/hpf)
[2023-02-14 12:22] LABS: Anisocytosis SLIGHT = 6-15 cells (100X) (0-5/hpf); Schistocytes SLIGHT = 2-5 cells (100X) (0-1/hpf)
[2023-02-14 12:23] LABS: Platelet Adequacy Comment Platelets Decreased
[2023-02-14] MEDS: HumaLOG 300 UNITS/3 ML VIAL SC PRN (12:52)
== END 2023-02-14 13:37 | disposition hospice, inpatient (51) | DRG 870 ==
LOC: ERS 13:53 → SUATTDRO 13:53 → CCU 17:01 → T4-A 02-09 19:23
PROVIDERS: ADMIT Internal Medicine; ATTEND Internal Medicine
PROC: 0T9B70Z Drainage of Bladder with Drainage Device, Via Natural or Artificial Opening (ICD-10-PCS; principal; 2023-02-02)
PROC: 0DH67UZ Insertion of Feeding Device into Stomach, Via Natural or Artificial Opening (ICD-10-PCS; 2023-02-02)
PROC: 0BH17EZ Insertion of Endotracheal Airway into Trachea, Via Natural or Artificial Opening (ICD-10-PCS; 2023-02-02)
PROC: 5A1955Z Respiratory Ventilation, Greater than 96 Consecutive Hours (ICD-10-PCS; 2023-02-02)
PROC: 4A033R1 Measurement of Arterial Saturation, Peripheral, Percutaneous Approach (ICD-10-PCS; 2023-02-02)
PROC: 3E033XZ Introduction of Vasopressor into Peripheral Vein, Percutaneous Approach (ICD-10-PCS; 2023-02-02)
PROC: 3E03329 Introduction of Other Anti-infective into Peripheral Vein, Percutaneous Approach (ICD-10-PCS; 2023-02-02)
PROC: 30233N1 Transfusion of Nonautologous Red Blood Cells into Peripheral Vein, Percutaneous Approach (ICD-10-PCS; 2023-02-06)
PROC: 30233J1 Transfusion of Nonautologous Serum Albumin into Peripheral Vein, Percutaneous Approach (ICD-10-PCS; 2023-02-13)
DX: A41.9 Sepsis, unspecified organism (principal); G93.41 Metabolic encephalopathy; J96.01 Acute respiratory failure with hypoxia; R65.21 Severe sepsis with septic shock; I50.33 Acute on chronic diastolic (congestive) heart failure; G91.9 Hydrocephalus, unspecified; N17.9 Acute kidney failure, unspecified; D61.818 Other pancytopenia; L03.115 Cellulitis of right lower limb; E87.0 Hyperosmolality and hypernatremia; E87.1 Hypo-osmolality and hyponatremia; Z51.5 Encounter for palliative care; Z66 Do not resuscitate; Z79.899 Other long term (current) drug therapy; F03.90 Unspecified dementia, unspecified severity, without behavioral disturbance, psychotic disturbance, mood disturbance, and anxiety; C50.919 Malignant neoplasm of unspecified site of unspecified female breast; E78.5 Hyperlipidemia, unspecified; Z96.649 Presence of unspecified artificial hip joint; Z90.89 Acquired absence of other organs; I48.91 Unspecified atrial fibrillation; N18.30 Chronic kidney disease, stage 3 unspecified; D63.1 Anemia in chronic kidney disease; Z79.4 Long term (current) use of insulin; E87.6 Hypokalemia; R62.7 Adult failure to thrive; Z68.29 Body mass index [BMI] 29.0-29.9, adult
CPT/HCPCS: 31500; 36415; 36416; 36430; 36600; 51701; 70450; 71045; 71275; 74018; 80048; 80053; 80202; 81001; 82040; 82805; 83605; 83735; 83880; 84145; 84484; 85025; 85610; 85730; 86850; 86870; 86900; 86901; 86905; 86922; 87040; 87070; 87081; 87086; 87205; 93005; 93010; 93306; 93970; 94003; 94640; 96361; 96365; 96375; 99292; C9113; J0171; J0456; J0696; J1160; J1815; J1940; J2060; J2543; J2704; J2920; J3010; J3370; J3480; J3490; J7050; J7070; J7120; J7620; P9016; P9047; Q9967

== ENCOUNTER 2023-02-14 13:41 | Inpatient (IN) | payer OTHER ==
[2023-02-14] MEDS ORDERED: Morphine 2 MG/ML VIAL SLOW IVP PRN (14:08)
[2023-02-14] MEDS ORDERED: Acetaminophen 650 MG Suppository PR PRN (14:15)
[2023-02-14] MEDS ORDERED: Ondansetron PF 4 MG/2 ML Vial IVP PRN (14:15)
[2023-02-14] MEDS ORDERED: Haloperidol Lactate 5 MG/ML VIAL SLOW IVP PRN (14:15)
[2023-02-14] MEDS ORDERED: Lorazepam 2 MG/ML VIAL SLOW IVP PRN (14:15)
[2023-02-14 14:17] VITALS: BMI 28.8
[2023-02-14] MEDS: Morphine 2 MG/ML VIAL SLOW IVP SCH ×5 (14:56→23:57)
[2023-02-14] MEDS ORDERED: Scopolamine 1 mg/72 hour Patch TOP SCH (15:00)
[2023-02-14] MEDS: Lorazepam 2 MG/ML VIAL SLOW IVP SCH ×2 (16:39→20:15)
[2023-02-15] MEDS: Lorazepam 2 MG/ML VIAL SLOW IVP SCH ×3 (00:01→08:18)
[2023-02-15] MEDS: Morphine 2 MG/ML VIAL SLOW IVP SCH ×4 (02:12→08:18)
[2023-02-15 07:17] VITALS: BP 72/35; TEMP 98.9
== END 2023-02-15 09:55 | disposition expired | DRG 951 ==
LOC: T4-A 13:41
PROVIDERS: ADMIT Family Medicine; ATTEND Family Medicine
DX: Z51.5 Encounter for palliative care (principal); A41.9 Sepsis, unspecified organism; R65.21 Severe sepsis with septic shock; J96.01 Acute respiratory failure with hypoxia; G93.41 Metabolic encephalopathy; E87.20 Acidosis, unspecified; G91.9 Hydrocephalus, unspecified; N17.9 Acute kidney failure, unspecified; D61.818 Other pancytopenia; F03.90 Unspecified dementia, unspecified severity, without behavioral disturbance, psychotic disturbance, mood disturbance, and anxiety; N18.9 Chronic kidney disease, unspecified; I50.9 Heart failure, unspecified; Z79.899 Other long term (current) drug therapy; Z85.3 Personal history of malignant neoplasm of breast
CPT/HCPCS: J2060; J2272